=== PATIENT | female | born 1985 | race Caucasian/White ===

== ENCOUNTER 2018-01-21 10:14 | Inpatient (IN) | payer MEDICAID ==
[~2018-01-21] VITALS: Ht 177.8 cm; Wt 65.5 kg
[2018-01-21 10:35] LABS: CLARITY,URINE CLEAR (Clear); COLOR,URINE YELLOW (Yellow); GLUCOSE, URINE NEGATIVE (Neg); KETONES,URINE NEGATIVE (Neg); LEUKOCYTE ESTERASE ,URINE NEGATIVE (Neg); NITRITES, URINE NEGATIVE (Neg); OCCULT BLOOD,URINE NEGATIVE (Neg); PH,URINE 5.5 (4.8-8.0); PROTEIN,URINE NEGATIVE (Neg); UROBILINOGEN,URINE 0.2 E.U/dL (0.2-1.0)
[2018-01-21 10:40] LABS: UA COLLECTION TYPE CLN CATCH MIDSTREAM
[2018-01-21 10:56] LABS: BASOPHILS % (AUTO) 0.5 % (0-1); EOSINOPHILS # (AUTO) 0.1 X10'3 (0-0.9); EOSINOPHILS % (AUTO) 1.3 % (0-6); HEMATOCRIT 42.2 % (35.0-45.0); HEMOGLOBIN 14.8 g/dl (12.0-16.0); LYMPHOCYTES # (AUTO) 1.6 X10'3 (1.1-4.8); LYMPHOCYTES % (AUTO) 31.1 % (21-51); MEAN CORPUSCULAR HEMOGLOBIN 31.7 PG (27.0-31.0); MEAN CORPUSCULAR HGB CONC 35.2 % (33.0-36.5); MEAN PLATELET VOLUME 8.7 FL (7.4-10.4); MONOCYTES # (AUTO) 0.4 X10'3 (0-0.9); MONOCYTES % (AUTO) 7.1 % (2-12); NEUTROPHILS # (AUTO) 3.1 X10'3 (1.8-7.7); PLATELET COUNT 182 X10'3 (140-440); RED BLOOD COUNT 4.69 X10'6 (4.20-5.60); WHITE BLOOD COUNT 5.2 X10'3 (4.5-11.0)
[2018-01-21 11:08] LABS: INR 1.1 INR; PARTIAL THROMBOPLASTIN TIME 27 SECONDS (22-32); PROTHROMBIN TIME 10.9 SECONDS (9.0-12.0)
[2018-01-21 11:13] LABS: ALANINE AMINOTRANSFERASE 24 U/L (12-78); ALBUMIN 4.4 G/DL (3.4-5.0); ALBUMIN/GLOBULIN RATIO 1.3 (1.1-1.5); ALKALINE PHOSPHATASE 48 IU/L (46-116); ANION GAP 11 (8-16); ASPARTATE AMINO TRANSFERASE 20 U/L (10-37); BLOOD UREA NITROGEN 17 MG/DL (7-18); BUN/CREATININE RATIO 16.7 (6.6-38.0); CALCIUM 9.1 MG/DL (8.5-10.1); CHLORIDE 105 MMOL/L (99-107); CREATININE 1.02 MG/DL (0.40-0.90); GLUCOSE 88 MG/DL (70-104); POTASSIUM 4.4 MMOL/L (3.5-5.1); SODIUM 142 MMOL/L (135-145); TOTAL CARBON DIOXIDE 26.1 MMOL/L (24-32); TOTAL PROTEIN 7.7 G/DL (6.4-8.2); eGFR 62 ML/MIN
[2018-01-21] MEDS ORDERED: acetaminophen 325mg tablet PO ONE (11:40)
[2018-01-21] MEDS ORDERED: aspirin 325mg tablet PO ONE (12:35)
[2018-01-21] MEDS: normal saline 1000ml 1,000 ML IV SCH (13:19)
[2018-01-21] MEDS ORDERED: magnesium 2GM in 50ml NS 50 ML IV PRN (13:20)
[2018-01-21] MEDS ORDERED: ondansetron/PF 4mg/2ml inj IV PRN (13:20)
[2018-01-21] MEDS ORDERED: magnesium 4gm in 100ml NS 100 ML IV PRN (13:20)
[2018-01-21] MEDS ORDERED: magnesium Cl slow-release 64mg tablet PO PRN (13:20)
[2018-01-21] MEDS ORDERED: potassium Cl 20 mEq SR tablet PO PRN ×2 (13:20)
[2018-01-21] MEDS ORDERED: HYDROcodone/acetaminophen 5mg/325mg tablet PO PRN (13:20)
[2018-01-21] MEDS ORDERED: acetaminophen 325mg tablet PO PRN ×2 (13:20)
[2018-01-21] MEDS ORDERED: mag hydrox/Alum hydrox/simeth 30ml oral suspension PO PRN (13:20)
[2018-01-21] MEDS ORDERED: magnesium hydroxide 30ml (MOM) UD suspension PO PRN (13:20)
[2018-01-21] MEDS ORDERED: potassium Cl 40MEQ/NS 500ml 500 ML IV PRN ×2 (13:20)
[2018-01-21 13:33] LABS: URINE AMPHETAMINE SCREEN NEGATIVE (Neg); URINE BARBITUATE SCREEN NEGATIVE (Neg); URINE BENZODIAZEPINES SCREEN NEGATIVE (Neg); URINE CANNABINOID SCREEN NEGATIVE (Neg); URINE COCAINE SCREEN NEGATIVE (Neg); URINE METHADONE SCREEN NEGATIVE (Neg); URINE OPIATE SCREEN NEGATIVE (Neg); URINE PHENCYCLIDINE SCREEN NEGATIVE (Neg)
[2018-01-21] MEDS ORDERED: NO HOME MEDS (13:42)
[2018-01-21 15:00] VITALS: BP 121/83
[2018-01-21] MEDS ORDERED: metoprolol tartrate 1mg/ml inj IV PRN (17:45)
[2018-01-21] MEDS ORDERED: nitroGLYCERIN 0.4mg SUBLingual tab SL PRN (17:45)
[2018-01-21] MEDS ORDERED: CAFFEINE CITRATE 60 MG/3 ML injection vial IV PRN (17:45)
[2018-01-21] MEDS ORDERED: regadenoson 0.4mg/5ml syringe IV PRN (17:45)
[2018-01-21 18:00] VITALS: BP 140/80
[2018-01-21] MEDS ORDERED: temazepam 15mg capsule PO PRN (21:00)
[2018-01-21 22:00] VITALS: BP 122/78
[2018-01-22] VITALS (16 sets, daily range): BP systolic 97–170; BP diastolic 56–93
[2018-01-22 00:33] LABS: BASOPHILS % (AUTO) 0.6 % (0-1); EOSINOPHILS # (AUTO) 0.1 X10'3 (0-0.9); EOSINOPHILS % (AUTO) 1.9 % (0-6); HEMATOCRIT 38.9 % (35.0-45.0); HEMOGLOBIN 13.4 g/dl (12.0-16.0); LYMPHOCYTES # (AUTO) 1.9 X10'3 (1.1-4.8); MEAN CORPUSCULAR HEMOGLOBIN 31.5 PG (27.0-31.0); MEAN CORPUSCULAR HGB CONC 34.4 % (33.0-36.5); MEAN CORPUSCULAR VOLUME 91.6 FL (78-98); MEAN PLATELET VOLUME 9.3 FL (7.4-10.4); MONOCYTES # (AUTO) 0.3 X10'3 (0-0.9); MONOCYTES % (AUTO) 6.8 % (2-12); NEUTROPHILS # (AUTO) 2.6 X10'3 (1.8-7.7); NEUTROPHILS % (AUTO) 52.7 % (42-75); PLATELET COUNT 158 X10'3 (140-440); RED BLOOD COUNT 4.24 X10'6 (4.20-5.60); RED CELL DISTRIBUTION WIDTH 13.1 % (11.5-14.5)
[2018-01-22] MEDS: normal saline 1000ml 1,000 ML IV SCH ×2 (01:11→09:19)
[2018-01-22 05:43] LABS: ALBUMIN 3.5 G/DL (3.4-5.0); ANION GAP 7 (8-16); BLOOD UREA NITROGEN 13 MG/DL (7-18); BUN/CREATININE RATIO 11.9 (6.6-38.0); CALCIUM 8.2 MG/DL (8.5-10.1); CHLORIDE 111 MMOL/L (99-107); CREATININE 1.09 MG/DL (0.40-0.90); GLUCOSE 85 MG/DL (70-104); MAGNESIUM 1.9 MG/DL (1.5-2.4); POTASSIUM 4.3 MMOL/L (3.5-5.1); SODIUM 144 MMOL/L (135-145); TOTAL CARBON DIOXIDE 25.7 MMOL/L (24-32); eGFR 58 ML/MIN
[2018-01-22] MEDS ORDERED: K and/or MAG REPLACEMENT MC SCH (08:00)
[2018-01-22] MEDS ORDERED: enoxaparin 40mg/0.4ml syringe SQ SCH (08:00)
[2018-01-22] MEDS ORDERED: CAFFEINE CITRATE 60 MG/3 ML injection vial IV ONE (10:03)
[2018-01-22] MEDS ORDERED: regadenoson 0.4mg/5ml syringe IV ONE (10:03)
== END 2018-01-22 15:20 | disposition home or self-care (01) | DRG 201 ==
LOC: ER 10:15 → ED HOLD 12:56 → PCU 3S 15:45
PROVIDERS: ADMIT Internal Medicine; ATTEND Internal Medicine
DX: I49.9 Cardiac arrhythmia, unspecified (principal); K90.0 Celiac disease
CPT/HCPCS: 36415; 71045; 78452; 80048; 80053; 80305; 81003; 83735; 83880; 84443; 84484; 85025; 85379; 85610; 85730; 87070; 93017; 93306; 99285; A9500; J7030